=== PATIENT | male | born 1960 | race Caucasian/White ===

== ENCOUNTER 2016-06-10 08:19 | Outpatient (CLI) | payer OTHER | END 2016-06-10 08:20 | disposition home or self-care (01) | DRG 561 | LOC: CONVCARE 08:19 | PROVIDERS: ATTEND Orthopaedic Surgery | DX: Z47.89 Encounter for other orthopedic aftercare (principal); M70.21 Olecranon bursitis, right elbow | CPT/HCPCS: 73030 ==

== ENCOUNTER 2018-04-04 09:08 | Day surgery (SDC) | payer OTHER ==
[~2018-04-04 09:08] MED LIST: LIDOCAINE HCL 1% MPF 30 SOL ONE; PROPOFOL 500 MG/50 ML EMU IV ONE
[2018-04-04 10:49] VITALS: BP 126/86; PULSE 78; RESP 18; TEMP 97.6; O2SAT 98
== END 2018-04-04 11:15 | disposition home or self-care (01) | DRG 951 ==
LOC: SURG 09:08
PROVIDERS: ATTEND Surgery
DX: Z12.11 Encounter for screening for malignant neoplasm of colon (principal); Z80.0 Family history of malignant neoplasm of digestive organs
CPT/HCPCS: J2001; J2704

== ENCOUNTER 2018-12-12 11:25 | Day surgery (SDC) | payer OTHER ==
[2018-12-12 13:01] VITALS: O2SAT 99
[2018-12-12 13:25] VITALS: BP 117/83; PULSE 60; RESP 16; TEMP 97.7
== END 2018-12-12 13:42 | disposition home or self-care (01) | DRG 392 ==
LOC: SURG 11:25
PROVIDERS: ATTEND Surgery
DX: K90.0 Celiac disease (principal)
CPT/HCPCS: 99001; J2001; J2704